=== PATIENT | female | born 1960 | race Caucasian/White ===

== ENCOUNTER 2018-11-21 00:48 | Inpatient (IN) ==
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
[2018-11-21] MEDS ORDERED: Morphine Sulfate 2 MG/ML SYRINGE IVP ONE ×2 (01:09→02:31)
[2018-11-21] MEDS ORDERED: GI Cocktail 40 ML EACH PO ONE (01:09)
[2018-11-21] MEDS ORDERED: Ondansetron 4 MG/2 ML VIAL IVP ONE (01:09)
[2018-11-21 01:36] LABS: Basophils # 0.1 K/mcL (0.0-0.2); Basophils % 0.5 %; Eosinophils # 0.3 K/mcL (0.0-0.6); Eosinophils % 2.2 %; Hematocrit 40.8 % (35.3-44.9); Hemoglobin 13.5 g/dL (11.5-15.4); Immature Granulocytes % 0.4 % (0-4); Lymphocytes # 1.3 K/mcL (0.6-4.6); Lymphocytes % 10.7 %; Mean Corpuscular HGB Conc 33.1 g/dL (31.6-35.5); Mean Corpuscular Hemoglobin 30.3 pg (28.0-33.3); Mean Corpuscular Volume 91.5 fL (83.0-100.0); Mean Platelet Volume 9.8 fL (9.4-12.4); Monocytes # 0.6 K/mcL (0.0-1.3); Monocytes % 4.7 %; Neutrophils # 9.9 K/mcL (1.6-8.9); Platelet Count 316 K/mcL (140-400); Red Blood Count 4.46 M/mcL (3.82-4.97); Red Cell Distribution Width 15.2 % (11.5-14.5); Segmented Neutrophils % 81.5 %; White Blood Count 12.2 K/mcL (4.3-11.1)
[2018-11-21 01:44] LABS: Bilirubin,Urine Negative (Negative); Blood,Urine Trace-intact (Negative); Clarity,Urine Slightly Cloudy (Clear); Color,Urine Yellow (Yellow); Glucose,Urine (UA) Normal (Normal); Ketones,Urine Negative (Negative); Leukocyte Esterase,Urine Trace (Negative); Nitrite,Urine Positive (Negative); PH,Urine 5.5 pH Units (5.0-8.0); Protein,Urine 100 mg/dL (Neg-Trace); Specific Gravity,Urine >= 1.030 (1.010-1.025); Urobilinogen,Urine Normal (Normal)
[2018-11-21 01:49] LABS: Bacteria,Urine Many per hpf (None-Few); RBC,Urine 0-3 per hpf (0-3); Squamous Epithelial Cell,Urine Many per lpf (None-Few)
[2018-11-21 02:16] LABS: Alanine Aminotransferase 7 Units/L (7-52); Albumin 4.1 g/dL (3.5-5.7); Albumin/Globulin Ratio 1.7 (1.1-2.2); Alkaline Phosphatase 108 Units/L (34-104); Amylase 312 Units/L (29-103); Aspartate Amino Transferase 12 Units/L (13-39); BUN/Creatinine Ratio 17 (6-26); Bilirubin,Direct 0.1 mg/dL (0.0-0.2); Bilirubin,Indirect 0.4 mg/dL (0.0-1.2); Bilirubin,Total 0.5 mg/dL (0.3-1.0); Blood Urea Nitrogen 12 mg/dL (6-20); Calcium 9.8 mg/dL (8.6-10.3); Carbon Dioxide 27 mEq/L (23-29); Chloride 101 mEq/L (98-107); Globulin 2.4 g/dL (2.4-3.5); Glucose 131 mg/dL (70-105); Lipase 1049 Units/L (11-82); Osmolality,Calculated 282 (280-300); Sodium 135 mEq/L (136-145); Total Protein 6.5 g/dL (6.4-8.9); eGFR For African Americans > 60 (> 60); eGFR For Non-African Americans > 60 (> 60)
[2018-11-21] MEDS ORDERED: 0.9 % Sodium Chloride 1,000 ML IVC ONE (02:31)
[2018-11-21] MEDS ORDERED: Isovue-370 500 ML BOTTLE IVP ONE ×2 (02:38→02:49)
[2018-11-21] MEDS ORDERED: *HR* OxyCODONE Immed Rel 5 MG TABLET PO PRN (03:19)
[2018-11-21] MEDS ORDERED: Acetaminophen 325 MG TABLET PO PRN (03:19)
[2018-11-21] MEDS ORDERED: Naloxone 0.4 MG/ML INJ IVP PRN (03:19)
[2018-11-21] MEDS: Ringers Solution, Lactated 1,000 ML IVC SCH ×4 (04:09→21:39)
[2018-11-21] MEDS ORDERED: Ondansetron ODT 4 MG TAB.RAPDIS SL PRN (04:31)
[2018-11-21] MEDS ORDERED: Tiotropium 18 MCG inhalation IH ONE (07:59)
[2018-11-21] MEDS: Tiotropium 18 MCG inhalation IH SCH (08:03)
[2018-11-21] MEDS: Famotidine 20 MG TABLET PO SCH ×2 (08:25→16:02)
[2018-11-21] MEDS: Folic Acid 1 MG TABLET PO SCH (08:25)
[2018-11-21] MEDS: *HR* HYDROcodone/Acet 5/325 mg TABLET PO PRN ×2 (08:51→20:38)
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
[2018-11-21 16:48] LABS: Amylase 312 Units/L (29-103); Lipase 779 Units/L (11-82); eGFR For African Americans > 60 (> 60); eGFR For Non-African Americans > 60 (> 60)
--- NOTE | 2018-11-21 21:06 | Event Note ---
Date of Encounter: 11/21/18 Time of Encounter: 21:04 I spoke with the nurse via phone. Patient is now hungry and wanting something to try to eat. No nausea or vomiting. Very minimal pain. Vitals are stable. Amylase stable, lipase dropping. We will attempt clear liquids and advance as tolerated. Follow-up lab work for the morning. Continue IV fluids.
[2018-11-22] MEDS: Ringers Solution, Lactated 1,000 ML IVC SCH (03:13)
[2018-11-22 06:25] LABS: Eosinophils % 1.4 %; Hematocrit 34.2 % (35.3-44.9); Immature Granulocytes % 0.4 % (0-4); Lymphocytes % 7.6 %; Mean Corpuscular HGB Conc 32.7 g/dL (31.6-35.5); Mean Corpuscular Hemoglobin 30.4 pg (28.0-33.3); Mean Corpuscular Volume 92.7 fL (83.0-100.0); Mean Platelet Volume 10.2 fL (9.4-12.4); Platelet Count 233 K/mcL (140-400); Red Blood Count 3.69 M/mcL (3.82-4.97); Red Cell Distribution Width 15.1 % (11.5-14.5); Segmented Neutrophils % 85.1 %; White Blood Count 11.1 K/mcL (4.3-11.1)
[2018-11-22 06:26] LABS: Basophils # 0.1 K/mcL (0.0-0.2); Basophils % 0.5 %; Eosinophils # 0.2 K/mcL (0.0-0.6); Lymphocytes # 0.8 K/mcL (0.6-4.6); Monocytes # 0.6 K/mcL (0.0-1.3); Neutrophils # 9.4 K/mcL (1.6-8.9)
[2018-11-22 06:27] LABS: Hemoglobin 11.2 g/dL (11.5-15.4)
--- NOTE | 2018-11-22 06:49 | Discharge Summary ---
- NOTES TO OUTPATIENT PROVIDER Notes to Outpatient Provider: #1. Patient will need follow-up CT scan to recheck pancreatic changes after hospitalization. Date of Encounter: 11/22/18 Time of Encounter: 14:10 - Discharge Diagnosis (1) Acute pancreatitis Priority: Primary Status: Acute Comments: Patient was admitted with acute pancreatitis with elevated amylase and lipase with associated abdominal pain, nausea, vomiting. Patient was on IV fluids and nothing by mouth except meds. In the subsequent 24 hours she improved dramatically. By time of discharge she was able to tolerate clear liquids and advance to regular diet. CT scan showed some streaking of the pancreas. Outpatient follow-up will be arranged after sufficient time to resolve the acute changes. Qualifiers: Pancreatitis type: alcohol induced Acute pancreatitis complication: unspecified Qualified Code(s): K85.20 - Alcohol induced acute pancreatitis without necrosis or infection (2) COPD (chronic obstructive pulmonary disease) Priority: Secondary Status: Chronic Comments: History of COPD and takes Spiriva and albuterol. She is no longer a smoker. She had no acute pulmonary symptoms during this stay. Qualifiers: COPD type: unspecified COPD Qualified Code(s): J44.9 - Chronic obstructive pulmonary disease, unspecified (3) Rheumatoid arthritis Priority: Secondary Status: Chronic Comments: Chronically has acute rheumatoid arthritis. She takes methotrexate and hydroxychloroquine. She had no acute flares during this hospital stay. Qualifiers: Rheumatoid arthritis location: multiple sites Rheumatoid factor presence: with rheumatoid factor Qualified Code(s): M05.79 - Rheumatoid arthritis with rheumatoid factor of multiple sites without organ or systems involvement (4) Hypertension Priority: Secondary Status: Chronic Comments: Blood pressure is under good control. She maintained her usual VERO inhibitor medication. Qualifiers: Hypertension type: essential hypertension Qualified Code(s): I10 - Essential (primary) hypertension (5) DVT prophylaxis Priority: Secondary Status: Acute Comments: Patient was ambulatory. Intermittent pressure devices for lower extremities was initiated. She had no signs of DVT. Hospital course: Ms. Triplett is a 58 year old female with known history of rheumatoid arthritis and previous recurring pancreatitis episodes prior to having her gallbladder taken out, was admitted with acute pancreatitis. It was presumed from alcohol use though should only had a few sips of moonshine the night before this occurred. CT scan was consistent with acute pancreatitis. Amylase and lipase were elevated. Please see the diagnoses above. After IV fluids and GI rest her symptoms improved and by time of discharge she was back to normal. Follow-up CT scan will be planned at a later date. Discharge discussed with: patient - Time Spent with Patient Total time spent providing and/or coordinating discharge services: - Discharge Medications Prescriptions: New Hydroxychloroquine [Plaquenuil] 200 mg PO DAILY tablet Continued Folic Acid 1 mg PO DAILY Ranitidine HCl [Zantac] 150 mg PO BID Naproxen Sodium [Naproxen Sodium ER] 500 mg PO BID Lisinopril [Zestril] 5 mg PO DAILY Cyclobenzaprine [Flexeril] 1 tab PO BID Tiotropium [Spiriva] 18 mcg IH DAILY Methotrexate [Otrexup] 7.5 mg PO QWEEK Albuterol Sulfate [Proair Hfa] 2 puff IH Q4H PRN PRN Reason: Shortness Of Breath HYDROcodone/Acet 5/325 mg [Tiller 5-325 mg] 1 tab PO Q6H PRN #10 tab PRN Reason: Pain Home Medications: Cyclobenzaprine [Flexeril] 1 tab PO BID 04/30/15 [History] Folic Acid 1 mg PO DAILY 04/30/15 [History] Lisinopril [Zestril] 5 mg PO DAILY 04/30/15 [History] Naproxen Sodium [Naproxen Sodium ER] 500 mg PO BID 04/30/15 [History] Ranitidine HCl [Zantac] 150 mg PO BID 04/30/15 [History] Tiotropium [Spiriva] 18 mcg IH DAILY 04/30/15 [History] Albuterol Sulfate [Proair Hfa] 2 puff IH Q4H PRN 01/28/17 [History] HYDROcodone/Acet 5/325 mg [Tiller 5-325 mg] 1 tab PO Q6H PRN #10 tab 01/28/17 [Rx] Methotrexate [Otrexup] 7.5 mg PO QWEEK 01/28/17 [History] Hydroxychloroquine [Plaquenuil] 200 mg PO DAILY tablet 11/22/18 [Rx] Allergies/Adverse Reactions: Allergy/AdvReac Type Severity Reaction Status Date / Time No Known Allergies Allergy Verified 01/28/17 01:41 Date of admission: 11/21/18 03:12 Primary care physician: Karl Brice MD Discharging clinician: Karl Brice Anticipated date of discharge: 11/22/18 - Constitutional Vitals: Temp Pulse Resp BP Pulse Ox 98.3 F 94 16 116/65 95 11/22/18 04:25 11/22/18 04:25 11/22/18 04:25 11/22/18 04:11/22/18 04:25 General appearance: Present: A&O X 3, no acute distress, answers questions appropriately - Respiratory Respiratory exam: Present: CTAB - Cardiovascular Cardiovascular exam: Present: RRR, +S1, +S2 - GI/Abdominal GI/Abdominal exam: Present: normal bowel sounds, soft, no peritoneal signs. Absent: hepatomegaly, mass, splenomegaly, tenderness - Extremities Exam Extremities exam: Absent: calf tenderness, pedal edema - Patient Status Disposition: Home, Self-Care Condition: Good Functional capacity at discharge: independent ambulation Overall status at discharge: patient is progressing back to baseline - Discharge Instructions Follow Up With: Karl Brice MD [Primary Care Provider] - (Our office will schedule a follow-up at a later date.) - Diet and Activity Activity: increase activity as tolerated Diet: advance to your usual diet
[2018-11-22 07:20] LABS: Amylase 287 Units/L (29-103); BUN/Creatinine Ratio 15 (6-26); Blood Urea Nitrogen 8 mg/dL (6-20); Calcium 8.6 mg/dL (8.6-10.3); Carbon Dioxide 27 mEq/L (23-29); Chloride 100 mEq/L (98-107); Glucose 67 mg/dL (70-105); Lipase 666 Units/L (11-82); Osmolality,Calculated 273 (280-300); Potassium 3.9 mEq/L (3.5-5.1); Sodium 133 mEq/L (136-145); eGFR For African Americans > 60 (> 60); eGFR For Non-African Americans > 60 (> 60)
[2018-11-22] MEDS ORDERED: *HR* Methotrexate 2.5 MG TABLET PO SCH (09:00)
[2018-11-22] MEDS: Folic Acid 1 MG TABLET PO SCH (09:50)
[2018-11-22] MEDS: Famotidine 20 MG TABLET PO SCH (09:50)
[2018-11-22] MEDS: *HR* HYDROcodone/Acet 5/325 mg TABLET PO PRN (09:54)
[2018-11-22] MEDS: Tiotropium 18 MCG inhalation IH SCH (10:28)
[2018-11-22 11:58] VITALS: BP 127/74
[2018-11-22] MEDS ORDERED: FLU Vac QV 19-20 (6Month+)/PF 0.5 ML SYRINGE IM ONE (15:58)
== END 2018-11-22 16:42 | disposition home or self-care (01) | DRG 282 ==
LOC: EMEROOGRE 00:48 → INPGRE 00:48 → OBSVTOIN 03:12 → INPGRE 03:30
PROVIDERS: ADMIT Family Medicine; ATTEND Family Medicine

== ENCOUNTER 2019-01-22 20:42 | Inpatient (IN) ==
[2019-01-22] MEDS ORDERED: Pantoprazole 40 MG VIAL IVP ONE (21:14)
[2019-01-22] MEDS ORDERED: Ondansetron 4 MG/2 ML VIAL IVP ONE (21:14)
[2019-01-22] MEDS ORDERED: *HR* HYDROmorphone (PF) 1 MG/ML SYRINGE IVP ONE (21:14)
[2019-01-22] MEDS ORDERED: 0.9 % Sodium Chloride 1,000 ML IVC ONE ×2 (21:14→22:25)
[2019-01-22] MEDS ORDERED: Isovue-370 500 ML BOTTLE IVP ONE (21:15)
[2019-01-22 21:57] LABS: Basophils # 0.1 K/mcL (0.0-0.2); Basophils % 0.9 %; Eosinophils # 0.6 K/mcL (0.0-0.6); Eosinophils % 6.1 %; Hematocrit 40.2 % (35.3-44.9); Hemoglobin 13.1 g/dL (11.5-15.4); Immature Granulocytes % 0.3 % (0-4); Lymphocytes # 1.8 K/mcL (0.6-4.6); Lymphocytes % 17.9 %; Mean Corpuscular HGB Conc 32.6 g/dL (31.6-35.5); Mean Corpuscular Hemoglobin 30.5 pg (28.0-33.3); Mean Corpuscular Volume 93.7 fL (83.0-100.0); Mean Platelet Volume 9.5 fL (9.4-12.4); Monocytes # 0.7 K/mcL (0.0-1.3); Monocytes % 7.4 %; Neutrophils # 6.7 K/mcL (1.6-8.9); Platelet Count 425 K/mcL (140-400); Red Blood Count 4.29 M/mcL (3.82-4.97); Red Cell Distribution Width 13.9 % (11.5-14.5); Segmented Neutrophils % 67.4 %; White Blood Count 9.9 K/mcL (4.3-11.1)
[2019-01-22 22:06] LABS: INR 1.4; Prothrombin Time 15.9 Seconds (9.4-12.1)
[2019-01-22 22:09] LABS: Activated Partial Thrombo Time 38.2 Seconds (26.0-36.0)
[2019-01-22 22:12] LABS: Troponin I < 0.03 ng/mL (< 0.04)
[2019-01-22 22:13] LABS: Alanine Aminotransferase 8 Units/L (7-52); Albumin 3.7 g/dL (3.5-5.7); Albumin/Globulin Ratio 1.2 (1.1-2.2); Alkaline Phosphatase 130 Units/L (34-104); Aspartate Amino Transferase 13 Units/L (13-39); BUN/Creatinine Ratio 18 (6-26); Bilirubin,Direct 0.1 mg/dL (0.0-0.2); Bilirubin,Indirect 0.2 mg/dL (0.0-1.0); Bilirubin,Total 0.3 mg/dL (0.3-1.0); Blood Urea Nitrogen 12 mg/dL (6-20); Calcium 9.1 mg/dL (8.6-10.3); Carbon Dioxide 28 mEq/L (23-29); Chloride 97 mEq/L (98-107); Glucose 132 mg/dL (70-105); Lipase 306 Units/L (11-82); Osmolality,Calculated 276 (280-300); Sodium 132 mEq/L (136-145); Total Protein 6.7 g/dL (6.4-8.9); eGFR For African Americans > 60 (> 60); eGFR For Non-African Americans > 60 (> 60)
[2019-01-22 23:15] LABS: Bilirubin,Urine Negative (Negative); Blood,Urine Negative (Negative); Clarity,Urine Slightly Cloudy (Clear); Glucose,Urine (UA) Normal (Normal); Ketones,Urine Negative (Negative); Leukocyte Esterase,Urine Small (Negative); Nitrite,Urine Positive (Negative); Protein,Urine Negative (Neg-Trace); Specific Gravity,Urine 1.015 (1.010-1.025); Urobilinogen,Urine Normal (Normal)
[2019-01-22 23:18] LABS: Color,Urine Yellow (Yellow)
[2019-01-22 23:24] LABS: Bacteria,Urine Moderate per hpf (None-Few); Squamous Epithelial Cell,Urine Few per lpf (None-Few)
[2019-01-22] MEDS ORDERED: cefTRIAXone 1,000 MG in Water for inj. (sterile) 10 ML IVP ONE (23:40)
[2019-01-23] MEDS ORDERED: 0.9 % Sodium Chloride 1,000 ML IVC SCH ×2 (00:15→00:36)
[2019-01-23] MEDS ORDERED: Ondansetron 4 MG/2 ML VIAL IVP PRN (00:36)
[2019-01-23] MEDS ORDERED: Naloxone 0.4 MG/ML INJ IVP PRN (00:36)
[2019-01-23] MEDS: 0.9 % Sodium Chloride 1,000 ML IVC SCH ×3 (01:44→18:07)
[2019-01-23] MEDS: Morphine Sulfate 2 MG/ML SYRINGE IVP PRN ×3 (01:45→12:50)
[2019-01-23 05:45] LABS: Basophils # 0.1 K/mcL (0.0-0.2); Basophils % 0.7 %; Eosinophils # 0.7 K/mcL (0.0-0.6); Eosinophils % 8.6 %; Hematocrit 34.3 % (35.3-44.9); Immature Granulocytes % 0.2 % (0-4); Lymphocytes % 24.7 %; Mean Corpuscular HGB Conc 32.7 g/dL (31.6-35.5); Mean Corpuscular Hemoglobin 30.9 pg (28.0-33.3); Mean Corpuscular Volume 94.8 fL (83.0-100.0); Mean Platelet Volume 9.6 fL (9.4-12.4); Monocytes # 0.6 K/mcL (0.0-1.3); Monocytes % 6.9 %; Neutrophils # 4.8 K/mcL (1.6-8.9); Platelet Count 308 K/mcL (140-400); Red Blood Count 3.62 M/mcL (3.82-4.97); Red Cell Distribution Width 13.9 % (11.5-14.5); Segmented Neutrophils % 58.9 %; White Blood Count 8.1 K/mcL (4.3-11.1)
[2019-01-23 05:49] LABS: Hemoglobin 11.2 g/dL (11.5-15.4)
[2019-01-23 06:00] LABS: BUN/Creatinine Ratio 15 (6-26); Blood Urea Nitrogen 8 mg/dL (6-20); Calcium 7.9 mg/dL (8.6-10.3); Carbon Dioxide 25 mEq/L (23-29); Chloride 105 mEq/L (98-107); Glucose 88 mg/dL (70-105); Lipase 194 Units/L (11-82); Magnesium 1.5 mg/dL (1.6-2.6); Osmolality,Calculated 274 (280-300); Potassium 3.7 mEq/L (3.5-5.1); Sodium 133 mEq/L (136-145); eGFR For African Americans > 60 (> 60); eGFR For Non-African Americans > 60 (> 60)
[2019-01-23] MEDS ORDERED: *HR* Enoxaparin 40 MG/0.4 ML SYRINGE SQ SCH (06:00)
[2019-01-23] MEDS: Famotidine 20 MG TABLET PO SCH ×2 (08:07→20:07)
[2019-01-23] MEDS: Folic Acid 1 MG TABLET PO SCH (08:07)
[2019-01-23] MEDS: *HR* Enoxaparin 40 MG/0.4 ML SYRINGE SQ SCH (08:07)
[2019-01-23] MEDS: Tiotropium 18 MCG inhalation IH SCH (10:03)
[2019-01-23] MEDS: Magnesium Oxide 400 MG TABLET PO SCH (22:07)
[2019-01-24] MEDS: Morphine Sulfate 2 MG/ML SYRINGE IVP PRN ×2 (02:40→17:51)
[2019-01-24] MEDS: 0.9 % Sodium Chloride 1,000 ML IVC SCH ×3 (02:40→21:10)
[2019-01-24 06:03] LABS: Basophils # 0.1 K/mcL (0.0-0.2); Basophils % 0.8 %; Eosinophils # 0.3 K/mcL (0.0-0.6); Eosinophils % 5.6 %; Hematocrit 32.6 % (35.3-44.9); Hemoglobin 10.5 g/dL (11.5-15.4); Immature Granulocytes % 0.5 % (0-4); Lymphocytes # 1.1 K/mcL (0.6-4.6); Lymphocytes % 19.2 %; Mean Corpuscular HGB Conc 32.2 g/dL (31.6-35.5); Mean Corpuscular Hemoglobin 30.7 pg (28.0-33.3); Mean Corpuscular Volume 95.3 fL (83.0-100.0); Mean Platelet Volume 9.4 fL (9.4-12.4); Monocytes # 0.4 K/mcL (0.0-1.3); Monocytes % 7.1 %; Platelet Count 282 K/mcL (140-400); Red Blood Count 3.42 M/mcL (3.82-4.97); Red Cell Distribution Width 14.1 % (11.5-14.5); Segmented Neutrophils % 66.8 %; White Blood Count 5.9 K/mcL (4.3-11.1)
[2019-01-24 06:59] LABS: Amylase 163 Units/L (29-103); BUN/Creatinine Ratio 9 (6-26); Blood Urea Nitrogen 4 mg/dL (6-20); Calcium 8.2 mg/dL (8.6-10.3); Carbon Dioxide 21 mEq/L (23-29); Chloride 106 mEq/L (98-107); Glucose 59 mg/dL (70-105); Lipase 179 Units/L (11-82); Osmolality,Calculated 271 (280-300); Potassium 4.3 mEq/L (3.5-5.1); Sodium 133 mEq/L (136-145); Triglycerides 54 mg/dL (< 150); eGFR For African Americans > 60 (> 60); eGFR For Non-African Americans > 60 (> 60)
[2019-01-24] MEDS ORDERED: *HR* Methotrexate 2.5 MG TABLET PO SCH (08:00)
[2019-01-24] MEDS: Famotidine 20 MG TABLET PO SCH ×2 (09:45→21:26)
[2019-01-24] MEDS: Magnesium Oxide 400 MG TABLET PO SCH ×2 (09:45→21:27)
[2019-01-24] MEDS: Folic Acid 1 MG TABLET PO SCH (09:45)
[2019-01-24] MEDS: *HR* Enoxaparin 40 MG/0.4 ML SYRINGE SQ SCH (09:47)
[2019-01-24] MEDS: Tiotropium 18 MCG inhalation IH SCH (10:19)
[2019-01-24] MEDS: cefTRIAXone 1,000 MG in 0.9 % Sodium Chloride Mini Bag 100 ML IVPB SCH (15:18)
[2019-01-24] MEDS: *HR* HYDROcodone/Acet 5/325 mg TABLET PO PRN (21:27)
[2019-01-25] MEDS: Morphine Sulfate 2 MG/ML SYRINGE IVP PRN ×3 (00:07→08:43)
[2019-01-25] MEDS: 0.9 % Sodium Chloride 1,000 ML IVC SCH ×3 (05:34→22:54)
[2019-01-25 05:41] LABS: Basophils # 0.1 K/mcL (0.0-0.2); Basophils % 0.6 %; Eosinophils # 0.4 K/mcL (0.0-0.6); Eosinophils % 4.7 %; Hematocrit 31.7 % (35.3-44.9); Hemoglobin 10.5 g/dL (11.5-15.4); Immature Granulocytes % 0.5 % (0-4); Lymphocytes # 1.1 K/mcL (0.6-4.6); Mean Corpuscular HGB Conc 33.1 g/dL (31.6-35.5); Mean Corpuscular Hemoglobin 30.8 pg (28.0-33.3); Mean Platelet Volume 9.4 fL (9.4-12.4); Monocytes # 0.7 K/mcL (0.0-1.3); Monocytes % 7.3 %; Platelet Count 279 K/mcL (140-400); Red Blood Count 3.41 M/mcL (3.82-4.97); Segmented Neutrophils % 74.9 %; White Blood Count 8.9 K/mcL (4.3-11.1)
[2019-01-25 05:43] LABS: Neutrophils # 6.7 K/mcL (1.6-8.9)
[2019-01-25 05:55] LABS: Amylase 165 Units/L (29-103); Lipase 295 Units/L (11-82)
[2019-01-25 05:56] LABS: BUN/Creatinine Ratio 9 (6-26); Blood Urea Nitrogen 4 mg/dL (6-20); Calcium 8.1 mg/dL (8.6-10.3); Carbon Dioxide 25 mEq/L (23-29); Chloride 102 mEq/L (98-107); Glucose 87 mg/dL (70-105); Magnesium 1.6 mg/dL (1.6-2.6); Osmolality,Calculated 270 (280-300); Potassium 4.4 mEq/L (3.5-5.1); Sodium 132 mEq/L (136-145); eGFR For African Americans > 60 (> 60); eGFR For Non-African Americans > 60 (> 60)
[2019-01-25] MEDS: cefTRIAXone 1,000 MG in 0.9 % Sodium Chloride Mini Bag 100 ML IVPB SCH (08:43)
[2019-01-25] MEDS: Folic Acid 1 MG TABLET PO SCH (08:43)
[2019-01-25] MEDS: Magnesium Oxide 400 MG TABLET PO SCH ×2 (08:43→20:17)
[2019-01-25] MEDS: Famotidine 20 MG TABLET PO SCH ×2 (08:43→20:17)
[2019-01-25] MEDS: *HR* Enoxaparin 40 MG/0.4 ML SYRINGE SQ SCH (08:44)
[2019-01-25] MEDS: Tiotropium 18 MCG inhalation IH SCH (09:05)
[2019-01-25] MEDS: *HR* HYDROcodone/Acet 5/325 mg TABLET PO PRN (20:17)
[2019-01-26 05:16] LABS: Basophils % 0.6 %; Eosinophils # 0.3 K/mcL (0.0-0.6); Eosinophils % 4.9 %; Hematocrit 30.6 % (35.3-44.9); Immature Granulocytes % 0.3 % (0-4); Lymphocytes # 1.2 K/mcL (0.6-4.6); Lymphocytes % 19.1 %; Mean Corpuscular HGB Conc 32.7 g/dL (31.6-35.5); Mean Corpuscular Hemoglobin 30.6 pg (28.0-33.3); Mean Corpuscular Volume 93.6 fL (83.0-100.0); Mean Platelet Volume 9.6 fL (9.4-12.4); Monocytes # 0.5 K/mcL (0.0-1.3); Monocytes % 7.7 %; Neutrophils # 4.3 K/mcL (1.6-8.9); Platelet Count 288 K/mcL (140-400); Red Blood Count 3.27 M/mcL (3.82-4.97); Red Cell Distribution Width 14.1 % (11.5-14.5); Segmented Neutrophils % 67.4 %; White Blood Count 6.4 K/mcL (4.3-11.1)
[2019-01-26 05:30] LABS: Amylase 149 Units/L (29-103); BUN/Creatinine Ratio 11 (6-26); Blood Urea Nitrogen 4 mg/dL (6-20); Calcium 8.1 mg/dL (8.6-10.3); Carbon Dioxide 18 mEq/L (23-29); Chloride 105 mEq/L (98-107); Glucose 50 mg/dL (70-105); Lipase 172 Units/L (11-82); Osmolality,Calculated 274 (280-300); Potassium 3.6 mEq/L (3.5-5.1); Sodium 135 mEq/L (136-145); eGFR For African Americans > 60 (> 60); eGFR For Non-African Americans > 60 (> 60)
[2019-01-26] MEDS: *HR* HYDROcodone/Acet 5/325 mg TABLET PO PRN ×2 (06:34→21:45)
[2019-01-26] MEDS: 0.9 % Sodium Chloride 1,000 ML IVC SCH ×3 (06:35→23:30)
[2019-01-26] MEDS: Tiotropium 18 MCG inhalation IH SCH (08:39)
[2019-01-26] MEDS: Folic Acid 1 MG TABLET PO SCH (09:01)
[2019-01-26] MEDS: Famotidine 20 MG TABLET PO SCH ×2 (09:01→21:32)
[2019-01-26] MEDS: *HR* Enoxaparin 40 MG/0.4 ML SYRINGE SQ SCH (09:01)
[2019-01-26] MEDS: Magnesium Oxide 400 MG TABLET PO SCH ×2 (09:01→21:32)
[2019-01-26] MEDS: Sulfamethoxazole/Trimeth DS 1 EACH TABLET PO SCH ×2 (11:54→21:32)
[2019-01-27 06:14] LABS: Basophils % 0.5 %; Eosinophils # 0.5 K/mcL (0.0-0.6); Eosinophils % 8.3 %; Hemoglobin 9.9 g/dL (11.5-15.4); Immature Granulocytes % 0.4 % (0-4); Lymphocytes # 1.1 K/mcL (0.6-4.6); Lymphocytes % 19.9 %; Mean Corpuscular Hemoglobin 30.7 pg (28.0-33.3); Mean Corpuscular Volume 92.9 fL (83.0-100.0); Mean Platelet Volume 9.8 fL (9.4-12.4); Monocytes # 0.4 K/mcL (0.0-1.3); Monocytes % 7.6 %; Neutrophils # 3.6 K/mcL (1.6-8.9); Platelet Count 279 K/mcL (140-400); Red Blood Count 3.23 M/mcL (3.82-4.97); Red Cell Distribution Width 13.9 % (11.5-14.5); Segmented Neutrophils % 63.3 %; White Blood Count 5.7 K/mcL (4.3-11.1)
[2019-01-27 06:54] LABS: Amylase 126 Units/L (29-103); BUN/Creatinine Ratio 7 (6-26); Blood Urea Nitrogen 3 mg/dL (6-20); Calcium 8.1 mg/dL (8.6-10.3); Carbon Dioxide 24 mEq/L (23-29); Chloride 105 mEq/L (98-107); Glucose 75 mg/dL (70-105); Lipase 149 Units/L (11-82); Osmolality,Calculated 271 (280-300); Potassium 3.6 mEq/L (3.5-5.1); Sodium 133 mEq/L (136-145); eGFR For African Americans > 60 (> 60); eGFR For Non-African Americans > 60 (> 60)
[2019-01-27] MEDS: *HR* Enoxaparin 40 MG/0.4 ML SYRINGE SQ SCH (07:22)
[2019-01-27] MEDS: Magnesium Oxide 400 MG TABLET PO SCH ×2 (07:22→20:45)
[2019-01-27] MEDS: Folic Acid 1 MG TABLET PO SCH (07:22)
[2019-01-27] MEDS: *HR* HYDROcodone/Acet 5/325 mg TABLET PO PRN ×2 (07:22→18:32)
[2019-01-27] MEDS: Sulfamethoxazole/Trimeth DS 1 EACH TABLET PO SCH ×2 (07:22→20:45)
[2019-01-27] MEDS: Famotidine 20 MG TABLET PO SCH ×2 (07:22→20:45)
[2019-01-27] MEDS: 0.9 % Sodium Chloride 1,000 ML IVC SCH ×3 (08:00→20:45)
[2019-01-27] MEDS: Tiotropium 18 MCG inhalation IH SCH (10:35)
[2019-01-28] MEDS: 0.9 % Sodium Chloride 1,000 ML IVC SCH (02:15)
[2019-01-28 05:22] LABS: Amylase 166 Units/L (29-103); BUN/Creatinine Ratio 5 (6-26); Blood Urea Nitrogen 3 mg/dL (6-20); Calcium 8.6 mg/dL (8.6-10.3); Carbon Dioxide 26 mEq/L (23-29); Chloride 103 mEq/L (98-107); Glucose 74 mg/dL (70-105); Lipase 241 Units/L (11-82); Osmolality,Calculated 271 (280-300); Potassium 3.8 mEq/L (3.5-5.1); Sodium 133 mEq/L (136-145); eGFR For African Americans > 60 (> 60); eGFR For Non-African Americans > 60 (> 60)
[2019-01-28] MEDS: *HR* HYDROcodone/Acet 5/325 mg TABLET PO PRN (06:39)
[2019-01-28 07:27] VITALS: BP 98/67
[2019-01-28] MEDS ORDERED: Levalbuterol Neb 1.25 MG/3 ML ONE (07:45)
[2019-01-28] MEDS: *HR* Enoxaparin 40 MG/0.4 ML SYRINGE SQ SCH (09:14)
[2019-01-28] MEDS: Magnesium Oxide 400 MG TABLET PO SCH (09:15)
[2019-01-28] MEDS: Folic Acid 1 MG TABLET PO SCH (09:15)
[2019-01-28] MEDS: Sulfamethoxazole/Trimeth DS 1 EACH TABLET PO SCH (09:15)
[2019-01-28] MEDS: Famotidine 20 MG TABLET PO SCH (09:15)
[2019-01-28] MEDS: Tiotropium 18 MCG inhalation IH SCH (09:47)
== END 2019-01-28 10:30 | disposition home or self-care (01) | DRG 282 ==
LOC: EMEROOGRE 20:42 → INPGRE 01-23 00:32
PROVIDERS: ADMIT Family Medicine; ATTEND Family Medicine

== ENCOUNTER 2020-09-07 11:48 | Observation (INO) ==
[2020-09-07] MEDS ORDERED: Ketorolac 30 MG/ML VIAL IVP ONE (11:52)
[2020-09-07] MEDS ORDERED: 0.9 % Sodium Chloride 1,000 ML IV ONE (11:52)
[2020-09-07] MEDS ORDERED: Ondansetron 4 MG/2 ML VIAL IVP ONE (11:52)
[2020-09-07 12:11] LABS: Basophils % 0.2 %; Eosinophils # 0.2 K/mcL (0.0-0.6); Eosinophils % 1.3 %; Hematocrit 39.5 % (35.3-44.9); Hemoglobin 12.6 g/dL (11.5-15.4); Immature Granulocytes % 0.6 % (0-4); Lymphocytes # 2.4 K/mcL (0.6-4.6); Lymphocytes % 18.9 %; Mean Corpuscular HGB Conc 31.9 g/dL (31.6-35.5); Mean Corpuscular Hemoglobin 25.8 pg (28.0-33.3); Mean Corpuscular Volume 80.9 fL (83.0-100.0); Mean Platelet Volume 10.4 fL (9.4-12.4); Monocytes # 0.3 K/mcL (0.0-1.3); Monocytes % 2.7 %; Neutrophils # 9.7 K/mcL (1.6-8.9); Platelet Count 318 K/mcL (140-400); Red Blood Count 4.88 M/mcL (3.82-4.97); Red Cell Distribution Width 16.2 % (11.5-14.5); Segmented Neutrophils % 76.3 %; White Blood Count 12.7 K/mcL (4.3-11.1)
[2020-09-07 12:25] LABS: Alanine Aminotransferase 14 Units/L (7-52); Albumin 2.5 g/dL (3.5-5.7); Alkaline Phosphatase 247 Units/L (34-104); Amylase 14 Units/L (29-103); Aspartate Amino Transferase 15 Units/L (13-39); BUN/Creatinine Ratio 15 (6-26); Bilirubin,Total 0.5 mg/dL (0.3-1.0); Blood Urea Nitrogen 16 mg/dL (8-23); Calcium 7.8 mg/dL (8.6-10.3); Carbon Dioxide 24 mEq/L (23-29); Chloride 103 mEq/L (98-107); Globulin 2.6 g/dL (2.4-3.5); Glucose 91 mg/dL (70-105); Osmolality,Calculated 281 (280-300); Potassium 2.7 mEq/L (3.5-5.1); Sodium 135 mEq/L (136-145); Total Protein 5.1 g/dL (6.4-8.9); eGFR For African Americans > 60 (> 60); eGFR For Non-African Americans 53 (> 60)
[2020-09-07] MEDS ORDERED: Piperacillin/Tazobactam 3.375 GM in 0.9 % Sodium Chloride Mini Bag 100 ML IVPB ONE (12:53)
[2020-09-07 13:07] LABS: Bilirubin,Urine Large (Negative); Blood,Urine Moderate (Negative); Clarity,Urine Cloudy (Clear); Color,Urine Yellow (Yellow); Glucose,Urine (UA) 100 mg/dL (Normal); Ketones,Urine Trace mg/dL (Negative); Leukocyte Esterase,Urine Negative (Negative); Nitrite,Urine Positive (Negative); PH,Urine 5.5 pH Units (5.0-8.0); Protein,Urine >=300 mg/dL (Neg-Trace); Specific Gravity,Urine >= 1.030 (1.010-1.025); Urobilinogen,Urine Normal (Normal)
[2020-09-07 13:09] LABS: Bacteria,Urine Many per hpf (None-Few); Mucus,Urine Few per lpf (None-Few); Squamous Epithelial Cell,Urine Few per hpf (None-Few); WBC,Urine 30-50 per hpf (0-3)
[2020-09-07] MEDS ORDERED: 0.9 % Sodium Chloride 1,000 ML IVC SCH (13:30)
[2020-09-07] MEDS ORDERED: MINOCYCLINE HCL 100 MG PO SCH (15:27)
[2020-09-07] MEDS ORDERED: Naloxone 0.4 MG/ML INJ IVP PRN (15:27)
[2020-09-07] MEDS ORDERED: Nitroglycerin 0.4 MG TAB.SUBL SL PRN (15:27)
[2020-09-07] MEDS ORDERED: Ondansetron 4 MG/2 ML VIAL IVP PRN (15:27)
[2020-09-07] MEDS: *HR* OxyCODONE/APAP 10/325 TABLET PO PRN (16:36)
[2020-09-07] MEDS: Sucralfate 1 GM TABLET PO SCH ×2 (16:37→21:29)
[2020-09-07] MEDS ORDERED: Piperacillin/Tazobactam 3.375 GM in 0.9 % Sodium Chloride Mini Bag 100 ML IVPB SCH (18:00)
[2020-09-07] MEDS ORDERED: Ketorolac 15 MG/ML VIAL IVP PRN (18:20)
[2020-09-07] MEDS: sulfaSALAzine 500 MG TABLET PO SCH (21:29)
[2020-09-07] MEDS: Apixaban 5 MG TABLET PO SCH (21:29)
[2020-09-07] MEDS: Piperacillin/Tazobactam 3.375 GM in 0.9 % Sodium Chloride Mini Bag 100 ML IVPB SCH (22:39)
[2020-09-07 23:57] LABS: Blood Urea Nitrogen 16 mg/dL (8-23); Chloride 107 mEq/L (98-107); Glucose 70 mg/dL (70-105); Osmolality,Calculated 278 (280-300); Potassium 3.2 mEq/L (3.5-5.1); Sodium 134 mEq/L (136-145)
[2020-09-07] MEDS: 0.9 % Sodium Chloride 1,000 ML IVC SCH (23:59)
[2020-09-08] MEDS: *HR* OxyCODONE/APAP 10/325 TABLET PO PRN ×3 (00:44→20:44)
[2020-09-08] MEDS: 0.9 % Sodium Chloride 1,000 ML IVC SCH ×4 (00:46→18:41)
[2020-09-08 01:09] LABS: BUN/Creatinine Ratio 16 (6-26); Carbon Dioxide 21 mEq/L (23-29); eGFR For African Americans > 60 (> 60); eGFR For Non-African Americans 57 (> 60)
[2020-09-08 04:37] LABS: Basophils % 0.4 %; Eosinophils # 0.1 K/mcL (0.0-0.6); Eosinophils % 0.8 %; Hematocrit 31.4 % (35.3-44.9); Immature Granulocytes % 0.6 % (0-4); Lymphocytes # 1.3 K/mcL (0.6-4.6); Mean Corpuscular HGB Conc 31.5 g/dL (31.6-35.5); Mean Corpuscular Hemoglobin 25.8 pg (28.0-33.3); Monocytes # 0.4 K/mcL (0.0-1.3); Monocytes % 5.4 %; Neutrophils # 5.9 K/mcL (1.6-8.9); Platelet Count 178 K/mcL (140-400); Red Blood Count 3.83 M/mcL (3.82-4.97); Red Cell Distribution Width 16.5 % (11.5-14.5); Segmented Neutrophils % 75.8 %; White Blood Count 7.8 K/mcL (4.3-11.1)
[2020-09-08 04:38] LABS: Hemoglobin 9.9 g/dL (11.5-15.4)
[2020-09-08 04:51] LABS: Alanine Aminotransferase 12 Units/L (7-52); Albumin 2.1 g/dL (3.5-5.7); Albumin/Globulin Ratio 1.1 (1.1-2.2); Alkaline Phosphatase 180 Units/L (34-104); Aspartate Amino Transferase 19 Units/L (13-39); BUN/Creatinine Ratio 18 (6-26); Bilirubin,Total 0.4 mg/dL (0.3-1.0); Blood Urea Nitrogen 17 mg/dL (8-23); Calcium 7.2 mg/dL (8.6-10.3); Carbon Dioxide 22 mEq/L (23-29); Chloride 111 mEq/L (98-107); Glucose 66 mg/dL (70-105); Osmolality,Calculated 286 (280-300); Potassium 3.9 mEq/L (3.5-5.1); Sodium 138 mEq/L (136-145); Total Protein 4.1 g/dL (6.4-8.9); eGFR For African Americans > 60 (> 60); eGFR For Non-African Americans 59 (> 60)
[2020-09-08] MEDS: Piperacillin/Tazobactam 3.375 GM in 0.9 % Sodium Chloride Mini Bag 100 ML IVPB SCH ×3 (05:08→22:04)
[2020-09-08] MEDS: Sucralfate 1 GM TABLET PO SCH ×3 (09:13→20:44)
[2020-09-08] MEDS: Aspirin Enteric Coated 81 MG Tablet PO SCH (09:14)
[2020-09-08] MEDS: sulfaSALAzine 500 MG TABLET PO SCH ×2 (09:14→20:44)
[2020-09-08] MEDS: Metoprolol XL (24 HR) Succ 50 MG TAB.ER.24H PO SCH (09:14)
[2020-09-08] MEDS: Apixaban 5 MG TABLET PO SCH ×2 (09:14→20:44)
[2020-09-08] MEDS: Tiotropium 10 INH DOSE IH SCH (09:42)
[2020-09-08] MEDS ORDERED: polyethylene glycoL 3350 17 GM POWD.PACK PO SCH (10:00)
[2020-09-08] MEDS: BIOTIN 1000 MCG PO SCH (10:05)
[2020-09-08] MEDS: Folic Acid 1 MG TABLET PO SCH (10:05)
[2020-09-08 16:57] LABS: VBG HCO3 19 mEq/L (21-27); VBG PCO2 38 mmHg (41-51); VBG PH 7.31 pH Units (7.32-7.42); VBG PO2 21 mmHg (25-50)
[2020-09-08 17:10] LABS: VBG Ionized Calcium 1.11 mmol/L (1.15-1.35)
[2020-09-08] MEDS ORDERED: 0.9 % Sodium Chloride 1,000 ML IV ONE (20:22)
[2020-09-09] MEDS: 0.9 % Sodium Chloride 1,000 ML IVC SCH ×3 (03:19→11:16)
[2020-09-09] MEDS: Piperacillin/Tazobactam 3.375 GM in 0.9 % Sodium Chloride Mini Bag 100 ML IVPB SCH ×2 (05:44→14:37)
[2020-09-09 07:32] LABS: Amphetamine Screen,Urine Negative ng/mL (Cutoff=1000); Barbiturate Screen,Urine Negative ng/mL (Cutoff=200); Benzodiazepines Screen,Urine Negative ng/mL (Cutoff=200); Cannabinoid Screen,Urine Positive ng/mL (Cutoff = 50); Cocaine Screen,Urine Negative ng/mL (Cutoff= 300); Opiate Screen,Urine Positive ng/mL (Cutoff=300); Phencyclidine Screen,Urine Negative ng/mL (Cutoff=25)
[2020-09-09 08:54] LABS: Basophils % 0.4 %; Eosinophils # 0.2 K/mcL (0.0-0.6); Eosinophils % 2.6 %; Hemoglobin 9.9 g/dL (11.5-15.4); Lymphocytes # 0.8 K/mcL (0.6-4.6); Lymphocytes % 11.2 %; Mean Corpuscular HGB Conc 30.9 g/dL (31.6-35.5); Mean Corpuscular Hemoglobin 25.7 pg (28.0-33.3); Mean Corpuscular Volume 83.1 fL (83.0-100.0); Mean Platelet Volume 10.6 fL (9.4-12.4); Monocytes # 0.4 K/mcL (0.0-1.3); Neutrophils # 5.8 K/mcL (1.6-8.9); Platelet Count 209 K/mcL (140-400); Red Blood Count 3.85 M/mcL (3.82-4.97); Red Cell Distribution Width 17.1 % (11.5-14.5); Segmented Neutrophils % 79.8 %; White Blood Count 7.2 K/mcL (4.3-11.1)
[2020-09-09 09:14] LABS: Alanine Aminotransferase 12 Units/L (7-52); Albumin 2.2 g/dL (3.5-5.7); Alkaline Phosphatase 179 Units/L (34-104); Aspartate Amino Transferase 16 Units/L (13-39); BUN/Creatinine Ratio 22 (6-26); Bilirubin,Total 0.4 mg/dL (0.3-1.0); Blood Urea Nitrogen 17 mg/dL (8-23); Calcium 7.4 mg/dL (8.6-10.3); Carbon Dioxide 16 mEq/L (23-29); Chloride 112 mEq/L (98-107); Globulin 2.2 g/dL (2.4-3.5); Glucose 95 mg/dL (70-105); Osmolality,Calculated 281 (280-300); Potassium 3.6 mEq/L (3.5-5.1); Sodium 135 mEq/L (136-145); Total Protein 4.4 g/dL (6.4-8.9); eGFR For African Americans > 60 (> 60); eGFR For Non-African Americans > 60 (> 60)
[2020-09-09] MEDS: Tiotropium 10 INH DOSE IH SCH (09:59)
[2020-09-09] MEDS: Metoprolol XL (24 HR) Succ 50 MG TAB.ER.24H PO SCH (10:19)
[2020-09-09] MEDS: Sucralfate 1 GM TABLET PO SCH ×2 (10:19→14:37)
[2020-09-09] MEDS: sulfaSALAzine 500 MG TABLET PO SCH (10:19)
[2020-09-09] MEDS: Aspirin Enteric Coated 81 MG Tablet PO SCH (10:19)
[2020-09-09] MEDS: Folic Acid 1 MG TABLET PO SCH (10:19)
[2020-09-09] MEDS: Apixaban 5 MG TABLET PO SCH (10:20)
[2020-09-09] MEDS: BIOTIN 1000 MCG PO SCH (10:21)
[2020-09-09] MEDS: *HR* OxyCODONE/APAP 10/325 TABLET PO PRN (10:30)
[2020-09-09 19:06] VITALS: BP 109/70
== END 2020-09-09 19:40 | disposition home or self-care (01) ==
LOC: EMEROOGRE 11:48 → INPGRE 11:48
PROVIDERS: ADMIT Family Medicine; ATTEND Family Medicine